=== PATIENT | female | born 1970 | race Caucasian/White ===

== ENCOUNTER 2019-04-28 19:06 | Emergency (ER) | payer MEDICARE, OTHER ==
[~2019-04-28] VITALS: Ht 165.1 cm; Wt 72.2 kg
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
[2019-04-28 21:02] LABS: PROTHROMBIN TIME 20.4 Seconds (9.6-11.5)
[2019-04-28 21:04] LABS: ALANINE AMINOTRANSFERASE 26 U/L (12-78); ALBUMIN 2.2 g/dL (3.4-5.0); ANION GAP 13 mmol/L (5-15); CALCIUM 8.1 mg/dL (8.5-10.1); CHLORIDE 101 mmol/L (98-107)
[2019-04-28 21:10] LABS: ALKALINE PHOSPHATASE 93 U/L (45-117); CREATININE 0.96 mg/dL (0.55-1.02); TOTAL PROTEIN 7.3 g/dL (6.4-8.2)
[2019-04-28 21:16] LABS: MD YES; MEAN CORPUSCULAR HEMOGLOBIN 31.4 pg (27.0-34.8); MEAN CORPUSCULAR HGB CONC 32.7 g/dL (32.4-35.8); MEAN CORPUSCULAR VOLUME 95.9 fL (80-100); MEAN PLATELET VOLUME 7.8 fL (7.4-10.4); RED BLOOD COUNT 3.36 x10^6/uL (3.82-5.3); RED CELL DISTRIBUTION WIDTH 23.9 % (9.6-15.2)
[2019-04-28 21:20] LABS: BASOS#(MANUAL) 0.09 x10^3/uL (0-0.1); BASOS% (MANUAL) 1 % (0-1); LYMPH#(MANUAL) 0.98 x10^3/uL (1-3.4); LYMPHS% (MANUAL) 11 % (22-44); MONOS#(MANUAL) 0.27 x10^3/uL (0.3-2.7); MONOS% (MANUAL) 3 % (2-9); SEG#(MANUAL) 7.57 x10^3/uL (1.8-6.8); SEGS% (MANUAL) 85 % (42-75)
[2019-04-28 21:21] LABS: ANISOCYTOSIS 1+; MICROCYTOSIS 1+; POLYCHROMASIA 1+
[2019-04-28 21:23] LABS: <PLATELET ESTIMATE> DECREASED; <PLT MORPHOLOGY> NORMAL PLT MORPH
[2019-04-28 21:24] LABS: PLATELET COUNT 48 x10^3/uL (130-400)
[2019-04-28] MEDS ORDERED: ALPR0.25 PO (21:39)
[2019-04-28] MEDS ORDERED: OLANZAPINE PO (21:39)
[2019-04-28] MEDS ORDERED: SERT100T32 PO (21:39)
[2019-04-28] MEDS ORDERED: TRAZ-137 PO (21:39)
[2019-04-28 21:56] VITALS: BP 118/78
== END 2019-04-28 21:57 | disposition home or self-care (01) ==
LOC: ED 21:51
DX: T76.21XA Adult sexual abuse, suspected, initial encounter (principal); K70.10 Alcoholic hepatitis without ascites; D69.3 Immune thrombocytopenic purpura; R94.5 Abnormal results of liver function studies; Y04.8XXA Assault by other bodily force, initial encounter; Y93.89 Activity, other specified; Y92.89 Other specified places as the place of occurrence of the external cause; Y99.8 Other external cause status
CPT/HCPCS: 36415; 80053; 80307; 83690; 84703; 85025; 85610; 99283

== ENCOUNTER 2019-05-06 10:39 | Emergency (ER) | payer OTHER ==
[~2019-05-06] VITALS: Ht 165.1 cm; Wt 75.1 kg
[~2019-05-06 10:39] MED LIST: ALPR0.25 PO; OLANZAPINE PO; SERT100T32 PO; TRAZ-137 PO
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
[2019-05-06 11:35] LABS: ALANINE AMINOTRANSFERASE 27 U/L (12-78); ALBUMIN 2.1 g/dL (3.4-5.0); ANION GAP 5 mmol/L (5-15); CALCIUM 7.6 mg/dL (8.5-10.1); CHLORIDE 110 mmol/L (98-107); CREATININE 0.73 mg/dL (0.55-1.02)
[2019-05-06 11:38] LABS: ALKALINE PHOSPHATASE 131 U/L (45-117); BILIRUBIN,TOTAL 2.6 mg/dL (0.2-1.0); TOTAL PROTEIN 7.1 g/dL (6.4-8.2)
[2019-05-06 11:47] LABS: INTERNATIONAL NORMALIZED RATIO 1.34 (0.93-1.1); PROTHROMBIN TIME 13.9 Seconds (9.6-11.5)
[2019-05-06 11:49] LABS: BASOPHILS # (AUTO) 0.02 x10^3/uL (0-0.1); BASOPHILS % (AUTO) 1 % (0-1); EOSINOPHILS # (AUTO) 0.12 x10^3/uL (0-0.4); EOSINOPHILS % (AUTO) 4 % (1-7); LYMPHOCYTES # (AUTO) 0.75 x10^3/uL (1-3.4); LYMPHOCYTES % (AUTO) 24 % (22-44); MD SCAN; MEAN CORPUSCULAR HEMOGLOBIN 31.9 pg (27.0-34.8); MEAN CORPUSCULAR HGB CONC 32.8 g/dL (32.4-35.8); MEAN CORPUSCULAR VOLUME 97.3 fL (80-100); MEAN PLATELET VOLUME 7.7 fL (7.4-10.4); MONOCYTES # (AUTO) 0.49 x10^3/uL (0.2-0.8); MONOCYTES % (AUTO) 16 % (2-9); NEUTROPHILS # (AUTO) 1.75 x10^3/uL (1.8-6.8); NEUTROPHILS % (AUTO) 56 % (42-75); PLATELET COUNT 50 x10^3/uL (130-400); RED BLOOD COUNT 3.12 x10^6/uL (3.82-5.3); RED CELL DISTRIBUTION WIDTH 24.5 % (9.6-15.2)
[2019-05-06 12:34] LABS: MICROSCOPIC INDICATED
[2019-05-06] MEDS ORDERED: MORPHINE SULFATE 4 MG/ML, 1ML ONE (12:45)
[2019-05-06] MEDS ORDERED: ONDANSETRON 2MG/ML, 2ML ONE (12:45)
[2019-05-06] MEDS ORDERED: LIDOCAINE-MPF 1%, 5ML ONE (12:56)
[2019-05-06] MEDS ORDERED: ONDANSETRON 2MG/ML, 2ML IVPush ONE (13:00)
[2019-05-06] MEDS ORDERED: MORPHINE SULFATE 4 MG/ML, 1ML IVPush PRN (13:00)
[2019-05-06 13:02] LABS: CULTURE INDICATED? YES
--- NOTE | 2019-05-06 13:14 | NUR ---
received bedside report from KT MAN. PT OUT OF ROOM AT IR.
--- NOTE | 2019-05-06 13:25 | NUR ---
PT BACK FROM IR.
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
[2019-05-06 15:00] VITALS: BP 90/55
== END 2019-05-06 15:04 | disposition home or self-care (01) ==
LOC: ED 11:32
DX: K70.31 Alcoholic cirrhosis of liver with ascites (principal); D69.3 Immune thrombocytopenic purpura; F17.210 Nicotine dependence, cigarettes, uncomplicated; N30.00 Acute cystitis without hematuria; Y04.8XXA Assault by other bodily force, initial encounter
CPT/HCPCS: 36415; 49083; 70450; 73502; 80053; 81001; 82042; 83615; 83690; 85025; 85610; 87070; 87086; 87205; 89051; 96374; 96375; 99285; J2270; J2405

== ENCOUNTER 2019-05-27 10:10 | Emergency (ER) | payer OTHER ==
[~2019-05-27] VITALS: Ht 167.6 cm; Wt 75.9 kg
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
[2019-05-27] MEDS ORDERED: LIDOCAINE-MPF 1%, 5ML ONE ×2 (10:46)
[2019-05-27 11:48] VITALS: BP 96/54
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
--- NOTE | 2019-05-27 12:50 | NUR ---
PT DISCHARGED WITH DISCHARGE INSTRUCTIONS AND FOLLOW UP INSTRUCTIONS. PT UP AMBULATORY AND STABLE ON FEET.
== END 2019-05-27 12:52 | disposition home or self-care (01) ==
LOC: ED 10:46
DX: K70.31 Alcoholic cirrhosis of liver with ascites (principal)
CPT/HCPCS: 49083; 99285

== ENCOUNTER 2020-06-11 21:45 | Emergency (ER) | payer OTHER ==
[~2020-06-11] VITALS: Ht 162.6 cm; Wt 80.0 kg
[~2020-06-11 21:45] MED LIST changes: -TRAZ-137 PO; +TRAZ-175 PO
--- NOTE | 2020-06-11 21:53 | NUR ---
PT AMBULATORY TO [facility] W/ STEADY GAIT.
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
--- NOTE | 2020-06-11 22:11 | NUR ---
PT REPORT TO KT JEREZ. PT CARE TRANSFERRED.
[2020-06-11 23:03] LABS: ANION GAP 10 mmol/L (5-15); CALCIUM 7.5 mg/dL (8.5-10.1); CHLORIDE 117 mmol/L (98-107); CREATININE 0.85 mg/dL (0.55-1.02)
[2020-06-11 23:24] LABS: ALBUMIN 2.8 g/dL (3.4-5.0); BILIRUBIN, DIRECT 0.7 mg/dL (0.1-0.2)
[2020-06-11 23:26] LABS: BILIRUBIN,INDIRECT 0.7 mg/dL (0.0-2.0); BILIRUBIN,TOTAL 1.4 mg/dL (0.2-1.0); TOTAL PROTEIN 6.9 g/dL (6.4-8.2)
[2020-06-11 23:36] LABS: BASOPHILS # (AUTO) 0.04 x10^3/uL (0-0.1); BASOPHILS % (AUTO) 1 % (0-1); EOSINOPHILS # (AUTO) 0.24 x10^3/uL (0-0.4); EOSINOPHILS % (AUTO) 4 % (1-7); LYMPHOCYTES # (AUTO) 2.14 x10^3/uL (1-3.4); LYMPHOCYTES % (AUTO) 32 % (22-44); MD SCAN; MEAN CORPUSCULAR HEMOGLOBIN 31.5 pg (27.0-34.8); MEAN CORPUSCULAR HGB CONC 32.4 g/dL (32.4-35.8); MEAN CORPUSCULAR VOLUME 97.4 fL (80-100); MEAN PLATELET VOLUME 6.3 fL (7.4-10.4); MONOCYTES # (AUTO) 0.62 x10^3/uL (0.2-0.8); MONOCYTES % (AUTO) 9 % (2-9); NEUTROPHILS # (AUTO) 3.71 x10^3/uL (1.8-6.8); NEUTROPHILS % (AUTO) 55 % (42-75); PLATELET COUNT 77 x10^3/uL (130-400); RED BLOOD COUNT 3.74 x10^6/uL (3.82-5.3); RED CELL DISTRIBUTION WIDTH 15.9 % (9.6-15.2)
[2020-06-11 23:45] VITALS: BP 138/76
--- NOTE | 2020-06-12 01:21 | NUR ---
WENT TO DC PT AT THIS TIME, PT IS NOT IN ROOM, PT LEFT WITHOUT DC PAPERS.
== END 2020-06-12 01:23 | disposition home or self-care (01) ==
LOC: ED 06-12 01:00
DX: K70.30 Alcoholic cirrhosis of liver without ascites (principal); F17.210 Nicotine dependence, cigarettes, uncomplicated; F10.120 Alcohol abuse with intoxication, uncomplicated; R23.3 Spontaneous ecchymoses; Z72.9 Problem related to lifestyle, unspecified; Y90.0 Blood alcohol level of less than 20 mg/100 ml
CPT/HCPCS: 36415; 80048; 80076; 85025; 99284; 99406